=== PATIENT | male | born 1995 | race Caucasian/White ===

== ENCOUNTER 2017-09-08 08:40 | Observation (INO) | payer OTHER ==
[2017-09-08] VITALS (7 sets, daily range): BP systolic 104–122; BP diastolic 60–80; PULSE 45–99; TEMP 97.3–98
[~2017-09-08] VITALS: Ht 172.7 cm; Wt 74.4 kg
== END 2017-09-08 17:06 | disposition home or self-care (01) ==
LOC: SURG 08:40
DX: N20.2 Calculus of kidney with calculus of ureter (principal)
CPT/HCPCS: C1769; C2617; G0378; J0690; J1100; J1885; J2270; J2405; J2704; J2765; J3010; J7030; Q9967